=== PATIENT | male | born 1960 ===

== ENCOUNTER 2023-11-04 08:56 | Outpatient (CLI) | payer OTHER, SELFPAY ==
--- NOTE | 2023-11-04 09:02 | USCV_ITS ---
Zackery Jewell Age: 63 Gender: M : 1960 Exam Date: 11/04/2023 09:09 Ordering Phys: Mikaela Rosa APRN Technologist: [place] [facility] [place] HISTORY: Diameter (cm) AP x Transverse x Length Velocity (cm/s) Waveform Prox Aorta: 1.80 x 1.60 x 99.80 Mid Aorta: 1.80 x 1.80 x 99.78 Distal Aorta: 1.80 x 1.80 x 88.50 Right Iliac Prox: 1.11 x 1.00 x 94.10 Left Iliac Prox: 1.17 x 0.98 x 73.40 Stent Prox Landing x x Aneurysmal Sac Max x x Lt Lat Sac Dim Rt Lat Sac Dim Stent Dist Landing x x Right Iliac Stent x x Left Iliac Stent x x Right Renal Art Left Renal Art FINDINGS: Comparison: none available. No evidence of abdominal aortic aneurysm. Normal Doppler flow velocites noted throught the aorta and common iliac arteries. CONCLUSIONS No evidence of abdominal aortic aneurysm. Dr. Martha Paz DO (Electronically Signed) Final Date: 04 November 2023 12:10 S
== END 2023-11-04 08:57 | disposition home or self-care (01) ==
PROVIDERS: Visit Provider Nurse Practitioner Family
DX: Z13.6 Encounter for screening for cardiovascular disorders (principal)
CPT/HCPCS: 76706